=== PATIENT | female | born 1950 | race Caucasian/White ===

== ENCOUNTER 2021-11-29 14:57 | Emergency (ER) | payer MEDICARE, OTHER ==
[~2021-11-29] VITALS: Ht 154.9 cm; Wt 52.0 kg
[2021-11-29 15:09] VITALS: BP 181/123
[2021-11-29] MEDS ORDERED: HYDROcodone/APAP 5/325MG 1 TAB TABLET PO ONE ×2 (15:15→16:15)
--- NOTE | 2021-11-29 16:25 | RAD ---
Exam Date: 11/29/2021 3:55 PM XR RT WRIST 3VIEWS Indication: Pain. Reason: FALL / Spl. Instructions: / History: . FINDINGS/ IMPRESSION: There is a comminuted intra-articular distal radius fracture with moderate dorsal angulation and mild dorsal displacement. Fracture lucencies extend the radial carpal and distal radioulnar joints. Mil d degenerative disease are noted. There is diffuse soft tissue swelling around the wrist. Electronically signed by: Eligio Meraz MD (11/29/2021 4:23 PM) [id number]
--- NOTE | 2021-11-29 16:40 | PHYS DOC ---
Past History Additional Past Medical Histor: Alzheimers (DAIRN TURNER APRN) Past Surgical History: No Surgical History (DARIN TURNER APRN) General Adult EDM: Chief Complaint: WRIST PAIN HPI: HPI: Patient is a 71-year-old female presents with left wrist pain. Patient she was walking on gravel when she slipped and fell and landed on her wrist. Wrist ap pears to be deformed. Denies taking anything prior to arrival. Radial pulses and sensation are intact. History of dementia. (DARIN TURNER APRN) Review of Systems: Review of Systems: ROS At least 10 ROS systems have been reviewed and are negative except as documented in the HPI. General: Negative except as outlined in HPI above. Skin: Negative except as outlined in HPI above. HEENT: Negative except as outlined in HPI above. Neck: Negative except as outlined in HPI above. Respiratory: Negative except as outlined in HPI above.. Cardiovascular: Negative except as outlined in HPI above. Abdomen: Negative except as outlined in HPI above. : Negative except as outlined in HPI above. Back/MSK: Negative except as outlined in HPI above. Neuro: Negative except as outlined in HPI above. Psych: Negative except as outlined in HPI above. (DARIN TURNER APRN) Current Medications: Current Meds: Current Medications Medications (Trade) Dose Ordered Sig/Rosita Start Time Stop Time Status Last Admin Dose Admin Acetaminophen/ Hydrocodone Bitart (Lortab 5/325) 1 tab 1X ONCE 11/29/21 16:15 11/29/21 16:19 DC 11/29/21 16:19 1 TAB (DARIN TURNER APRN) Allergies: Allergies: Allergies Coded Allergies Type Severity Reaction Last Updated Verified No Known Drug Allergies 11/29/21 No (DARIN TURNER APRN) Physical Exam: PE: Constitutional: Well developed, well nourished, no acute distress, non-toxic skip earance. [] HENT: Normocephalic, atraumatic, bilateral external ears normal, oropharynx moist Eyes: PERRLA, EOMI, conjunctiva normal, no discharge. [] Neck: Normal range of motion, no tenderness, supple, no stridor. [] Cardiovascular:Heart rate regular rhythm, no murmur [] Lungs & Thorax: Bilateral breath sounds clear to auscultation [] Abdomen: Bowel sounds normal, soft, no tenderness, no masses, no pulsatile masses. [] Skin: Warm, dry, no erythema, no rash. [] Back: No tenderness, no CVA tenderness. [] Extremities: Left wrist tenderness, radial pulses intact, sensation intact, ROM intact, swelling Neurologic: Alert and oriented X 3, normal motor function, normal sensory function, no focal deficits noted. [] Psychologic: Affect normal, judgement normal, mood normal. [] (DARIN TURNER APRN) Current Patient Data: Vital Signs: Vital Signs Date Time Temp Pulse Resp B/P (MAP) Pulse Ox O2 Delivery O2 Flow Rate FiO2 11/29/21 16:19 16 96 11/29/21 15:09 98.0 72 181/123 (142) Room Air (DARIN TURNER APRN) EKG: EKG: [] (DARIN TURNER APRN) Radiology/Procedures: Radiology/Procedures: []Exam Date: 11/29/2021 3:55 PM XR RT WRIST 3VIEWS Indication: Pain. Reason: FALL / Spl. Instructions: / History: . FINDINGS/ IMPRESSION: There is a comminuted intra-articular distal radius fracture with moderate dorsal angulation and mild dorsal displacement. Fracture lucencies extend the radial carpal and distal radioulnar joints. Mild degenerative disease are noted. There is diffuse soft tissue swelling around the wrist. Electronically signed by: Eligio Meraz MD (11/29/2021 4:23 PM) [id number] (DARIN TURNER APRN) Heart Score: C/O Chest Pain: No Risk Factors: Risk Factors: DM, Current or recent (<one month) smoker, HTN, HLP, family history of CAD, obesity. Risk Scores: Score 0 - 3: 2.5% MACE over next 6 weeks - Discharge Home Score 4 - 6: 20.3% MACE over next 6 weeks - Admit for Clinical Observation Score 7 - 10: 72.7% MACE over next 6 weeks - Early Invasive Strategies (DARIN TURNER APRN) Course & Med Decision Making: Course & Med Decision Making Pertinent Labs and Imaging studies reviewed. (See chart for details) [] 71-year-old female who presents with left wrist pain after a fall. Radial pulses intact. Pain treated while in the ER. Wrist x-ray shows there is a comminuted intra-articular distal radius fracture with moderate dorsal angulation and mild dorsal displacement. Patient given second dose of pain medication. Sending patient home with medication for pain. Patient given instructions to follow-up with orthopedic on Wednesday. Patient given and a CD with radiology results. Splint placed. Educated on RICE. (DARIN TURNER APRN) Selam Disclaimer: Selam Disclaimer: This electronic medical record was generated, in whole or in part, using a voice recognition dictation system. (DARIN TURNER APRN) Attending Co-Sign The patient was seen and interviewed as well as examined at the bedside. The chart was reviewed. The case was discussed. Agree with the plan of care. (RAY DICKEY DO) Departure Departure: Impression: Primary Impression: Wrist fracture, closed Qualified Codes: S62.102A - Fracture of unspecified carpal bone, left wrist, initial encounter for closed fracture Disposition: HOME / SELF CARE / HOMELESS Condition: STABLE Referrals: PCP,NO (PCP) Patient Instructions: Wrist Fracture Additional Instructions: You are seen in the emergency room for left wrist pain. X-ray showed a fracture to your wrist. A splint was placed. I am sending you home with pain medication along with a CD so that you can give it to your orthopedic doctor in [place]. Make sure that you call on Wednesday and make a follow-up appointment. Ibuprofen for breakthrough pain. Rest, use ice to the area, elevate to help with swelling and pain. Please return to the emergency room if you have worsening symptoms or concerns such as loss of sensation. EMERGENCY DEPARTMENT GENERAL DISCHARGE INSTRUCTIONS Thank you for coming to [facility] (ED) today and trusting us with you care. We trust that you had a positivie experience in our Emergency Department. If you wish to speak to the department management, you may call the director at [phone]. YOUR FOLLOW UP INSTRUCTIONS ARE FOLLOWS: 1. Do you have a private Doctor? If you do not have a private doctor, please ask for a resource list of physicians or clinics that may be able to assist you with follow up care. 2. The Emergency Physician has interpreted your x-rays. The X-Ray specialist will also review them. If there is a change in the findings, you will be notified in 48 hours when at all possible. 3. A lab test or culture has been done, your results will be reviewed and you will be notified if you need a change in treatment. ADDITIONAL INSTRUCTIONS AND INFORMATION: 1. Your care today has been supervised by a physician who is specially trained in emergency care. Many problems require more than one evaluation for a complete diagnosis and treatment. We recommend that you schedule your follow up appointment as stephanie mmended to ensure complete treatment of you illness or injury. If you are unable to obtain follow up care and continue to have a problem, or if your condition worsens, we recommend that you return to the ED. 2. We are not able to safely determine your condition over the phone nor are we able to give sound medical advice over the phone. For these safety reasons, if you call for medical advice we will ask you to come to the ED for further evaluation. 3. If you have any questions regarding these discharge instructions please call the ED at [phone]. SAFETY INFORMATION: In the interest of safety, wellness, and injury prevention; we encourage you to wear your sealbelt, if you smoke; quite smoking, and we encourage family to use a protective helmet for bicycling and other sporting events that present an increased risk for head injury. IF YOUR SYMPTOMS WORSEN OR NEW SYMPTOMS DEVELOP, OR YOU HAVE CONCERNS ABOUT YOUR CONDITION; OR IF YOUR CONDITION WORSENS WHILE YOU ARE WAITING FOR YOUR FOLLOW UP APPOINTMENT; EITHER CONTACT YOUR PRIMARY CARE DOCTOR, THE PHYSICIAN WHOSE NAME AND NUMBER YOU WERE GIVEN, OR RETURN TO THE ED IMMEDIATELY. Scripts Hydrocodone Bit/Acetaminophen (HYDROCODONE-APAP 5-325 ) 1 Each Tablet 1-2 TAB PO PRN Q6HRS PRN for PAIN for 3 Days, #20 TAB 0 Refills Prov: DARIN TURNER APRN 11/29/21 DARIN TURNER APRN Nov 29, 2021 16:40 RAY DICKEY DO Dec 03, 2021 06:25
[2021-11-29] MEDS ORDERED: HYDR-2155 PO (17:18)
== END 2021-11-29 17:37 | disposition home or self-care (01) ==
LOC: ER 14:57
DX: S52.502A Unspecified fracture of the lower end of left radius, initial encounter for closed fracture (principal); S62.102A Fracture of unspecified carpal bone, left wrist, initial encounter for closed fracture; G30.9 Alzheimer's disease, unspecified; W18.00XA Striking against unspecified object with subsequent fall, initial encounter; Y93.89 Activity, other specified; Y92.89 Other specified places as the place of occurrence of the external cause; Y99.8 Other external cause status
CPT/HCPCS: 29125; 73110; 99283-25